=== PATIENT | female | born 1955 | race Caucasian/White ===

== ENCOUNTER 2020-04-23 08:59 | Outpatient (CLI) | payer OTHER, SELFPAY ==
--- NOTE | ~2020-04-23 | MM_ITS ---
EXAMINATION: MM screening [facility] BI w oscar HISTORY: Screening mammogram TECHNIQUE: Craniocaudal and mediolateral oblique 3-D tomosynthesis images were obtained and synthetic 2-D images were generated. CAD analysis was submitted and interpreted. COMPARISON: 04/20/2019, 04/20/2018, 04/27/2017, 05/15/2017 BREAST PARENCHYMAL COMPOSITION: There are scattered areas of fibroglandular density. FINDINGS: There is no evidence of suspicious mass, calcification, or architectural distortion to sugg est malignancy in either breast. There has been no suspicious interval change. IMPRESSION: 1. No mammographic evidence of malignancy. 2. Recommend routine screening mammography in one year. BI-RADS Category 1: Negative Reviewed, dictated and finalized at location A. OR COMPUTER SPECIALIST
== END 2020-04-23 09:00 | disposition home or self-care (01) ==
LOC: ANHIMG 09:03
PROVIDERS: PCP Family Medicine; Visit Provider Obstetrics & Gynecology
DX: Z12.31 Encounter for screening mammogram for malignant neoplasm of breast (principal)
CPT/HCPCS: 77063; 77067

== ENCOUNTER → 2021-02-25 09:37 | Outpatient (CLI) | payer MEDICARE, SELFPAY ==
--- NOTE | ~2021-02-25 | XR_ITS ---
XR shoulder LT min 2V DATE: 02/25/2021 10:05 INDICATION: Left shoulder pain, stiffness TECHNIQUE: 4 views COMPARISON: None FINDINGS: No fracture or dislocation, periosteal reaction or bone destruction or abnormal soft tissue calcification. IMPRESSION: No significant abnormality of the left shoulder Reviewed, dictated and finalized at location A.
== END ==
PROVIDERS: PCP Family Medicine; Visit Provider Nurse Practitioner Family
DX: M25.512 Pain in left shoulder (principal)
CPT/HCPCS: 73030

== ENCOUNTER 2021-03-10 09:45 | Outpatient (CLI) | payer MEDICARE, SELFPAY ==
--- NOTE | ~2021-03-10 | MR_ITS ---
EXAMINATION: MR shoulder LT wo con DATE: 03/10/2021 10:36 INDICATION: Left shoulder pain TECHNIQUE: Magnetic resonance imaging (MRI) of the left shoulder was performed without intravenous co ntrast. Sequences included axial PD-weighted FS FSE, coronal oblique PD-weighted FS FSE, coronal obli que T2-weighted FS FSE, sagittal PD-weighted FS FSE, and sagittal T1-weighted SE. COMPARISON: None. FINDINGS: Coracoacromial arch: The acromion undersurface is curved in morphology (type II). The coracoacromial ligament is normal. M inimal acromioclavicular osteoarthritis. Rotator cuff: The supraspinatus, infraspinatus and teres minor tendons are normal. The subscapularis tendon is norm al. Normal rotator cuff muscle bulk and signal. Biceps tendon, glenoid labrum and glenohumeral cartilage: Long head of the biceps tendon is normal. Labral tear occurring at the chondral labral junction at th e 8:00-9:30 position of the posterior glenoid labrum. Glenohumeral cartilage is otherwise normal. Fluid: Physiologic amount of fluid in the glenohumeral joint and biceps tendon sheath. No loose osteochondra l bodies. No abnormal fluid signal in the subacromial/subdeltoid bursa to suggest bursitis. Bones: Normal marrow signal with fracture or pathologic marrow replacing process. IMPRESSION: 1. Tear at the base of the posterior glenoid labrum. Reviewed, dictated and finalized at location A.
== END 2021-03-10 09:46 | disposition home or self-care (01) ==
PROVIDERS: PCP Family Medicine; Visit Provider Nurse Practitioner Family
DX: M25.512 Pain in left shoulder (principal); M25.612 Stiffness of left shoulder, not elsewhere classified
CPT/HCPCS: 73221

== ENCOUNTER 2021-05-12 10:23 | Outpatient (CLI) | payer MEDICARE, SELFPAY ==
--- NOTE | ~2021-05-12 | MM_ITS ---
EXAMINATION: MM screening [facility] BI w oscar HISTORY: Screening mammogram TECHNIQUE: Craniocaudal and mediolateral oblique 3-D tomosynthesis images were obtained and synthetic 2-D images were generated. CAD analysis was submitted and interpreted. COMPARISON: 04/23/2020, 04/20/2019, 04/20/2018 bilateral screening mammogram examinations BREAST PARENCHYMAL COMPOSITION: There are scattered areas of fibroglandular density. FINDINGS: There is no evidence of suspicious mass, calcification, or architectural distortion to sugg est malignancy in either breast. There has been no suspicious interval change. IMPRESSION: 1. No mammographic evidence of malignancy. 2. Recommend routine screening mammography in one year. BI-RADS Category 1: Negative Reviewed, dictated and finalized at location A. H CLEARER SURVEYING
== END 2021-05-12 10:24 | disposition home or self-care (01) ==
LOC: ANHIMG 10:28
PROVIDERS: PCP Family Medicine; Visit Provider Obstetrics & Gynecology
DX: Z12.31 Encounter for screening mammogram for malignant neoplasm of breast (principal)
CPT/HCPCS: 77063; 77067

== ENCOUNTER 2021-11-13 00:29 | Day surgery (SDC) | payer MEDICARE, SELFPAY ==
[2021-10-27 13:45] VITALS: BMI 24.0
[2021-11-13 06:12] VITALS: BP 138/72; PULSE 89; RESP 16; TEMP 36.3; O2SAT 99; BMI 23.8
[2021-11-13] MEDS: LACTATED RINGERS 1,000 ML 150 ML IV CONT (06:29)
--- NOTE | 2021-11-13 06:47 | PM.HPGS ---
History of Present Illness History of Present Illness Consent: Risks, benefits, and alternatives have been discussed and questions answered. Patient agrees to proceed with procedure. Chief complaint: neoplasm screening Narrative: Pat Hurst is a 66 year old female For for colon cancer screening. Review of Systems Review of Systems: All systems reviewed & are unremarkable except as noted in HPI and below PMFSH Past Medical History Medical History Abnormal MRI, shoulder Ear pressure Family history of diabetes mellitus History of stress test (~2008) Lesion of face Mixed hyperlipidemia Family History Family History Mother Hypertension Family history of atrial fibrillation Father Family history of type 2 diabetes mellitus Family history of congestive heart failure Social History Social History Smoking status: Never smoker Alcohol intake: never Substance use: never Substance use type: does not use Living arrangements: with family Gender identity (if verbalized by the patient): Female Sexual Orientation (if Verbalized by the Patient): Straight or Heterosexual Spiritual care concerns: No Meds Home Medications and Allergies Home Medications Medication Instructions Recorded Confirmed Type simvastatin 20 mg tablet 20 mg PO DAILY #90 tabs 07/22/21 11/13/21 Rx Allergies Allergy/AdvReac Type Severity Reaction Status Date / Time Penicillins Allergy Unknown Hives Verified 11/13/21 06:19 Sulfa (Sulfonamide Allergy Unknown Hives Verified 11/13/21 06:19 Antibiotics) Vital Signs Vital Signs - 24 hr 11/13/21 06:12 Temperature 36.3 C L Pulse Rate 89 Respiratory Rate 16 Blood Pressure 138/72 Pulse Oximetry 99 Oxygen Delivery Room Air Exam Resp: Auscultation: clear to auscultation bilaterally Cardio: Rate: regular rate Rhythm: regular rhythm GI: GI Palp: Yes Soft to palpation and No Tenderness to palpation present (GI) Assessment and Plan Assessment and plan (1) Colon cancer screening: Code(s): Z12.11 - Encounter for screening for malignant neoplasm of colon Status: Acute Plan Colonoscopy with possible biopsy or polypectomy or cautery or injection of substances.
--- NOTE | 2021-11-13 07:12 | WPDANESEPPF ---
Anes - Initial Pre Proc Eval Procedure: Operation Date: 11/13/21 07:30 Proposed Procedures p Screening Colonoscopy - Cesario Carson MD Date/Time: 11/13/21 07:12 Surgeon: Cesario Carson MD Pre Op Diagnosis: neoplasm screening Patient Data Age: 66 Gender: F Height: 1.52 m Weight: 55.2 kg Last Vital Signs Temp 97.4 F L 11/13/21 06:12 Pulse 89 11/13/21 06:12 Resp 16 11/13/21 06:12 BP 138/72 11/13/21 06:12 Pulse Ox 99 11/13/21 06:12 O2 Del Method Room Air 11/13/21 06:12 Allergies Allergy/AdvReac Type Severity Reaction Status Date / Time Penicillins Allergy Unknown Hives Verified 11/13/21 06:19 Sulfa (Sulfonamide Allergy Unknown Hives Verified 11/13/21 06:19 Antibiotics) Home Medications Medication Instructions Recorded Confirmed Type simvastatin 20 mg tablet 20 mg PO DAILY #90 tabs 07/22/21 11/13/21 Rx Patient hx anesthesia problems: none Family hx anesthesia problems: none Results Review: All pre-operative results and documents have been reviewed as part of the pre-operative evaluation. REPLACED BY [facility] Past Medical History Medical History Abnormal MRI, shoulder Ear pressure Family history of diabetes mellitus History of stress test (~2008) Lesion of face Mixed hyperlipidemia Family History Family History Mother Hypertension Family history of atrial fibrillation Father Family history of type 2 diabetes mellitus Family history of congestive heart failure Social History Social History Smoking status: Never smoker Alcohol intake: never Substance use: never Substance use type: does not use Living arrangements: with family Gender identity (if verbalized by the patient): Female Sexual Orientation (if Verbalized by the Patient): Straight or Heterosexual Spiritual care concerns: No Anes - Eval Final PreProcedure Day of Procedure 11/13/21 07:12 Patient weight: normal Heart: regular rate and rhythm Lungs: clear to auscultation Airway: Mallampati scale class II Neurological: alert and oriented Last oral intake: >/= 8 hours ASA classification: II Emergent: no Anesthetic plan: proceed Anesthesia type and monitoring: general GIVS and standard monitoring Results Review: All pre-operative results and documents have been reviewed as part of the pre-operative evaluation. Informed Consent: The patient's anesthetic plan and its attendant risks and benefits were discussed with the patient/family/POA. Questions were solicited and answers provided to the satisfaction of the patient/family/POA.
[2021-11-13] MEDS: SIMETHICONE ORAL SUSPENSION 20 MG/0.3 ML 30 ML BOTTLE 0.6 ML IRRIGATION (07:32)
[2021-11-13 07:42] VITALS: BP 102/63; PULSE 67; RESP 24; O2SAT 99
[2021-11-13 07:52] VITALS: BP 100/59; PULSE 63; RESP 20; O2SAT 98
[2021-11-13 08:02] VITALS: BP 114/71; PULSE 63; RESP 23; O2SAT 100
== END 2021-11-13 08:11 | disposition home or self-care (01) ==
PROVIDERS: PCP Family Medicine; Visit Provider Internal Medicine Gastroenterology
PROC: 0DJD8ZZ Inspection of Lower Intestinal Tract, Via Natural or Artificial Opening Endoscopic (ICD-10-PCS; CPT 45378; principal; 2021-11-13 07:30)
DX: Z12.11 Encounter for screening for malignant neoplasm of colon (principal); K57.30 Diverticulosis of large intestine without perforation or abscess without bleeding; D12.5 Benign neoplasm of sigmoid colon; E78.2 Mixed hyperlipidemia
CPT/HCPCS: 45385; 88305; J2704; J7120

== ENCOUNTER 2022-01-27 08:31 | Outpatient (CLI) | payer MEDICARE, SELFPAY ==
--- NOTE | ~2022-01-27 | DEXA_ITS ---
Bone Density Report Name: MAXIMINO KING Age: 66 Sex: Female Ethnicity: White Date of : 1955 Indication: postmenopausal; screening for osteoporosis; Referring Provider: FRITZ OCAMPO Study: Bone densitometry was performed. Exam Date: January 27, 2022 Accession number: [id number] Bone Density: Region BMD T-score Z-score Classification AP Spine(L1-L4) 1.028 -0.2 1.7 Normal Femoral Neck (Left) 0.777 -0.6 0.9 Normal Total Hip (Left) 0.948 0.0 1.3 Normal Femoral Neck (Right) 0.813 -0.3 1.3 Normal Total Hip (Right) 0.951 0.1 1.4 Normal Total Hip Mean 0.949 0.1 1.4 Normal World Health Organization criteria for BMD impression classify patients as: Normal (T-score at or above -1.0), Osteopenia (T-score between -1.0 and -2.5), or Osteoporosis (T-score at or below -2.5). 10-year Fracture Risk: FRAX not reported because: All T-scores for Spine Total, Hip Total, Femoral Neck at or above -1.0 Clinical Information Provided by Patient: Patient maximum height was 61 Menopause Age: 54 Does not regularly consume dairy products Drinks caffeinated beverages Onset of menses at age 13 Number of children 0 Impression: The patient has normal bone mass. Discussion: BONE DENSITY IS ABOVE THE MINIMUM DESIRABLE LEVEL AT ALL SKELETAL SITES TESTED. This patient?s bone mineral density is above the minimum desirable level (T-score -1.0 or better) at all sites measured. The patient should follow a healthful lifestyle (good nutrition with adequate calcium and vitamin D, and appropriate weight-bearing exercise). Follow-Up: Consider repeating this study in 5 years or sooner if there is some new clinical indication. Reported by: BRENDA on 01/27/2022 8:54:00 AM. Reviewed, dictated and finalized at location A. [facility]
== END 2022-01-27 08:32 | disposition home or self-care (01) ==
PROVIDERS: PCP Family Medicine; Visit Provider Family Medicine
DX: Z78.0 Asymptomatic menopausal state (principal)
CPT/HCPCS: 77080

== ENCOUNTER 2022-07-03 07:43 | Outpatient (CLI) | payer MEDICARE, SELFPAY ==
--- NOTE | ~2022-07-03 | MM_ITS ---
EXAMINATION: MM screening [facility] BI w oscar HISTORY: Screening mammogram TECHNIQUE: Craniocaudal and mediolateral oblique 3-D tomosynthesis images were obtained and synthetic 2-D images were generated. CAD analysis was submitted and interpreted. COMPARISON: , 04/23/2020, 04/20/2019 BREAST PARENCHYMAL COMPOSITION: There are scattered areas of fibroglandular density. FINDINGS: No suspicious mass, calcification, or architectural distortion are identified in either alexia ast to suggest malignancy. There has been no suspicious interval change. IMPRESSION: 1. No mammographic evidence of malignancy. 2. Recommend routine screening mammography in one year. BI-RADS Category 1: Negative Reviewed, dictated and finalized at location A. PULLER
== END 2022-07-03 07:44 | disposition home or self-care (01) ==
LOC: ANHIMG 07:46
PROVIDERS: PCP Family Medicine; Visit Provider Obstetrics & Gynecology
DX: Z12.31 Encounter for screening mammogram for malignant neoplasm of breast (principal)
CPT/HCPCS: 77063; 77067

== ENCOUNTER 2023-08-05 15:13 | Outpatient (CLI) | payer MEDICARE, SELFPAY ==
--- NOTE | ~2023-08-05 | MM_ITS ---
EXAMINATION: MM screening [facility] BI w oscar HISTORY: Screening TECHNIQUE: Craniocaudal and mediolateral oblique 3-D tomosynthesis images were obtained and synthetic 2-D images were generated. CAD analysis was submitted and interpreted. COMPARISON: Comparison to multiple prior studies sequentially, with oldest reviewed study dated 12/2017. BREAST PARENCHYMAL COMPOSITION: There are scattered areas of fibroglandular density. FINDINGS: There is no evidence of suspicious mass, calcification, or architectural distortion to sugg est malignancy in either breast. There has been no suspicious interval change. IMPRESSION: 1. No mammographic evidence of malignancy. 2. Recommend routine screening mammography in one year. BI-RADS Category 1: Negative Reviewed, dictated and finalized at location A. OLOGY PROFESSOR
== END 2023-08-05 15:14 | disposition home or self-care (01) ==
PROVIDERS: PCP Family Medicine; Visit Provider Obstetrics & Gynecology
DX: Z12.31 Encounter for screening mammogram for malignant neoplasm of breast (principal)
CPT/HCPCS: 77063; 77067

== ENCOUNTER → 2024-09-04 11:16 | Outpatient (REF) | payer MEDICARE, SELFPAY ==
--- OUTSIDE RECORDS SUMMARY | 2024-09-04 13:21 | XMS_ITS | Clinical Summary ---
Author Organization [facility] Care Team Providers Care Qual Research Manager Name Role Phone Provider, None Primary Care Provider Unavailabl e Allergies Active Allergy Reactions Criticality Noted Date Comments Penicillins Unknown Sulfa Antibiotics Unknown Medications Multiple Vitamins-Mineral s (CENTRUM SILVER ULTRA WOMENS) PO TABS Take by mouth daily. Active simvastatin (ZOCOR) 20 MG Tablet TAKE 1 TABLET DAILY 90 Tab 3 03/16/2016 Active Active Problems Problem Noted Date Diagnosed Date Multiple allergies 07/15/2015 Hyperlipidemia Seborrheic keratosis Immunizations Immunization Administration Dates Next Due Influenza Vaccine greater than 3 yrs 04/11/2014 Influenza Vaccine, Quadrivalent, PF 04/16/2015 04/16/2016 TDAP Vaccine 02/09/2012 Family History Relation Name Status Comments Father Mother Social History Tobacco Use Types Packs/Day Years Used Date Smoking Tobacco: Never Tobacco Cessation:Counseling Given: Yes Alcohol Use Standard Drinks/Week Comments Yes 0 (1 standard drink = 0.6 oz pur e alcohol) Comments No Sex and Gender Information Value Date Recorded Sex Assigned at Not on file Legal Sex Female 3:26 PM CDT Gender Identity Not on file Sexual Orientation Not on file Last Filed Vital Signs Vital Sign Reading Time Taken Comments Blood Pressure 114/80 01/22/2016 9:21 AM CDT Pulse 74 01/22/2016 9:21 AM CDT Temperature 36.7 C (98 F) 01/22/2016 9:21 AM CDT Respiratory Rate 19 01/22/2016 9:21 AM CDT Oxygen Saturation 98% 01/22/2016 9:21 AM CDT Inhaled Oxygen Concentration - - Weight 59.4 kg (131 lb) 01/22/2016 9:21 AM CDT Height 152.4 cm (5') 01/22/2016 9:21 AM CDT Body Mass Index 25.58 01/22/2016 9:21 AM CDT Plan of Treatment Health Maintenance Due Date Last Done Comments DEXA Bone Density 1955 Hepatitis C Virus (HCV) Screening 1955 Cologuard 10/28/2005 Immunochemical Fecal Occult Blood 10/28/2005 Pneumococcal Immunization (5 0+ years) (1 of 1 - PCV) 10/28/2005 Zoster Immunization (1 of 2) 10/28/2005 Mammogram 05/27/2018 05/27/2016, 04/26/2015 Colonoscopy 07/08/2021 07/08/2011 Colorectal Cancer Screening 07/08/2021 Influenza Immunization (#1) 02/13/202408/2014, 04/11/2014 SARS-COV-2 Immunization (1 - season) 2024 Respiratory Syncytial Virus (RSV) Immunization (Adult) (1 - 1-dose 75+ series) 10/28/2030 07/08/2011 DTaP/Tdap/Td Immunization Discontinued 02/09/2012 Hepatitis B Immunization Aged Out No longer eligible based on patient's age to complete this topic Meningococcal Immunization (ACWY) Aged Out No longer eligible based on patient's age to complete this topic Rotavirus Immunization Aged Out No lo nger eligible based on patient's age to complete this topic Procedures Procedure Name Priority Date/Time Associated Diagnosis Comments AVNI SCREENING BILATERAL DIGITAL W CAD Routine 05/27/2016 1:26 PM FABRICATION WELDER Visit for screening mammogram HM COLONOSCOPY Routine 07/08/2011 from Last 3 Months or Most Recently Relevant to Health Maintenance Results * AVNI SCREENING BILATERAL DIGITAL W CAD (05/27/2016 1:26 PM FABRICATION WELDER) Anatomical Region Laterality Modality breast Bilateral Mammography 05/27/2016 1:10 PM FABRICATION WELDER Narrative 05/27/2016 3:31 PM FABRICATION WELDER - AVNI SCREENING BILATERAL DIGITAL W CAD BILATERAL DIGITAL SCREENING MAMMOGRAM WITH CAD WITH MEDIOLATERAL OBLIQUE CRANIOCAUDAL: 05/27/2016 The study was acquired using digital technology and interpreted from soft copy. Current study was also evaluated with ICAD version 7.2. CLINICAL: Routine screening. Patient has no complaints. No personal history of cancer. No family history of breast cancer. COMPARISONS: Comparison is made to exams dated: 04/26/2015, 04/11/2014, 04/06/2013, 04/11/2012, 04/05/2012, and 03/10/2010 [facility]. BREAST TISSUE:There are scattered fibroglandular densities in both breasts. FINDINGS: No significant masses, calcifications, or other findings are seen in either breast. There has been no significant interval change. IMPRESSION: BI-RAD 1 NEGATIVE There is no mammographic evidence of malignancy. A 1 year screening mammogram is recommended. The patient has been or will be contacted. The patient will be entered into a reminder system with a target due date of 1 year for her next screening exam. Electronically signed by: Nemesio ko/maria del carmen:05/27/2016 13:45:16 Credit Card Control Clerk: Jaye Castillo(Nell), [facility] letter sent: Normal Exam Reading location: [facility] BI-RADS: 1 Negative Procedure Note Nemesio Benjamin MD - 05/27/2016 - AVNI SCREENING BILATERAL DIGITAL W CAD BILATERAL DIGITAL SCREENING MAMMOGRAM WITH CAD WITH MEDIOLATERAL OBLIQUE CRANIOCAUDAL: 05/27/2016 The study was acquired using digital technology and interpreted from soft copy. Current study was also evaluated with ICAD version 7.2. CLINICAL: Routine screening. Patient has no complaints. No personal history of cancer. No family history of breast cancer. COMPARISONS: Comparison is made to exams dated: 04/26/2015, 04/11/2014, 04/06/2013, 04/11/2012, 04/05/2012, and 03/10/2010 [facility]. BREAST TISSUE:There are scattered fibroglandular densities in both breasts. FINDINGS: No significant masses, calcifications, or other findings are seen in either breast. There has been no significant interval change. IMPRESSION: BI-RAD 1 NEGATIVE There is no mammographic evidence of malignancy. A 1 year screening mammogram is recommended. The patient has been or will be contacted. The patient will be entered into a reminder system with a target due date of 1 year for her next screening exam. Electronically signed by: Nemesio ko/maria del carmen:05/27/2016 13:45:16 Credit Card Control Clerk: Jaye Castillo(Nell), [facility] letter sent: Normal Exam Reading location: [facility] BI-RADS: 1 Negative us Kiko Andrea MD IMG MAMMO ORDERABLES F inal Result * HM COLONOSCOPY (07/08/2011) us Miguel A Bolaños Jr., MD PROCEDURE/M INOR SURGICAL ORDERABLES Edited Result - Final from Last 3 Months or Most Recently Relevant to Health Maintenance Care Teams Qual Research Manager Relationship Specialty Start Date End Date Provider, None [place] PCP - General 05/27/16
== END ==
LOC: ANHLAB 11:16
PROVIDERS: PCP Family Medicine; Visit Provider Plastic Surgery
DX: C44.92 Squamous cell carcinoma of skin, unspecified (principal)
CPT/HCPCS: 88305

== ENCOUNTER 2024-09-12 07:37 | Outpatient (CLI) | payer MEDICARE, SELFPAY ==
--- NOTE | ~2024-09-12 | MM_ITS ---
EXAMINATION: MM screening [facility] BI w oscar HISTORY: Screening mammogram TECHNIQUE: Craniocaudal and mediolateral oblique 3-D tomosynthesis images were obtained and synthetic 2-D images were generated. CAD analysis was submitted and interpreted. COMPARISON: 08/05/2023, 07/03/2022, 05/12/2021 BREAST PARENCHYMAL COMPOSITION:Not Dense. There are scattered areas of fibroglandular density. FINDINGS: No suspicious mass, calcification, or architectural distortion are identified in either alexia ast to suggest malignancy. There has been no suspicious interval change. IMPRESSION: No mammographic evidence of malignancy. Recommend routine screening mammography in one year. BI-RADS Category 1: Negative Reviewed, dictated and finalized at location .
--- OUTSIDE RECORDS SUMMARY | 2024-09-12 07:40 | XMS_ITS | Continuity of Care Document ---
Author Organization [facility] Address [address] [place] [address] Phone Care Team Providers Care Flight Hostess Name Role Phone Gerardo OD, Jay Unavailable Unavailable Advance Directives Directive Yes / No Effective Date File Name No Information Encounters Encounter Description Practice Location Reason(s) For Visit Diagnoses Date Provider Providers Copied on Encounter [facility], [address], [place], [place], [id number], [place] tel:[phone] [facility] No Information Sep-0 5-200 3 Gerardo OD Jay. [address], [place], [address], [place]. tel:[phone] Family History Family Member Type Diagnosis Age At Onset No Information Payers Payer name Insurance type Covered libertarian ID Authoriza tion(s) No Information Social History Type Description Quantity Date Captured Comments Sex Female Smoking Status No Information Chief Complaint And Reason For Visit No Information Reason For Referral Reason For Referral No Information History Of Present Illness Encounter Date Complaint History Of Prese nt Illness No Information Functional Status Date Functional Assessmen t No Information Instructions Date Instruction Additional Infor mation No Information Assessments Type Assessment Date No Information Patient Care Teams Name Effective Dates (start - stop) Status Members No Information
--- OUTSIDE RECORDS SUMMARY | 2024-09-12 07:40 | XMS_ITS | Clinical Summary ---
Author Organization [facility] Care Team Providers Care Client Portfolio Manager Name Role Phone Provider, None Primary [...] DIGITAL W CAD Routine 05/27/2016 1:26 PM SNOW SHOVELER Visit for screening mammogram HM COLONOSCOPY Routine 07/08/2011 from Last 3 Months or Most Recently Relevant to Health Maintenance Results * AVNI SCREENING BILATERAL DIGITAL W CAD (05/27/2016 1:26 PM SNOW SHOVELER) Anatomical Region Laterality Modality breast Bilateral Mammography 05/27/2016 1:10 PM SNOW SHOVELER Narrative 05/27/2016 3:31 PM SNOW SHOVELER - AVNI SCREENING BILATERAL DIGITAL W CAD [...] 04/26/2015, 04/11/2014, 04/06/2013, 04/11/2012, 04/05/2012, and 03/10/2010 [facility]. BREAST TISSUE:There are scattered fibroglandular densities [...] signed by: Nemesio ko/maria del carmen:05/27/2016 13:45:16 School Boat Driver: Jaye Castillo(Nell), [facility] letter sent: Normal Exam Reading location: [facility] BI-RADS: 1 Negative Procedure Note Nemesio Benjamin [...] 04/26/2015, 04/11/2014, 04/06/2013, 04/11/2012, 04/05/2012, and 03/10/2010 [facility]. BREAST TISSUE:There are scattered fibroglandular densities [...] signed by: Nemesio ko/maria del carmen:05/27/2016 13:45:16 School Boat Driver: Jaye Castillo(Nell), [facility] letter sent: Normal Exam Reading location: [facility] BI-RADS: 1 Negative us Kiko Andrea MD IMG MAMMO ORDERABLES F inal Result * HM COLONOSCOPY (07/08/2011) us Miguel A Bolaños Jr., MD PROCEDURE/M INOR SURGICAL ORDERABLES Edited Result - Final from Last 3 Months or Most Recently Relevant to Health Maintenance Care Teams Client Portfolio Manager Relationship Specialty Start Date End Date Provider, None [place] PCP - General 05/27/16
== END 2024-09-12 07:38 | disposition home or self-care (01) ==
PROVIDERS: PCP Family Medicine; Visit Provider Obstetrics & Gynecology
DX: Z12.31 Encounter for screening mammogram for malignant neoplasm of breast (principal)
CPT/HCPCS: 77063; 77067

== ENCOUNTER 2024-10-11 13:38 | Outpatient (CLI) | payer MEDICARE, SELFPAY ==
--- NOTE | ~2024-10-11 | US_ITS ---
US soft tissue head and neck 10/11/2024 13:55 Indication: Right neck inflammation Procedure: High-resolution ultrasound of the right neck. Comparison images of the left neck also perf ormed. Comparison: No prior studies for comparison. Findings: Normal heterogeneous soft tissues in the area of inflammation. No discrete mass or fluid co llection to suggest abscess. Images of the left neck are unremarkable. Impression: 1: Normal soft tissue ultrasound of the right neck. No discrete mass or fluid collection. Reviewed, dictated and finalized at location A. Impression: 1: Normal soft tissue ultrasound of the right neck. No discrete mass or fluid c ollection.
== END 2024-10-11 13:39 | disposition home or self-care (01) ==
LOC: MICIMG 13:40
PROVIDERS: PCP Family Medicine; Visit Provider Nurse Practitioner Family
DX: M54.2 Cervicalgia (principal)
CPT/HCPCS: 76536